=== PATIENT | female | born 1950 | race Caucasian/White ===

== ENCOUNTER → 2018-11-28 | Outpatient (CLI) | payer MEDICARE, OTHER ==
--- NOTE | 2018-11-28 11:47 | XR ---
EXAMINATION TYPE: XR cervical spine comp DATE OF EXAM: 11/28/2018 COMPARISON: NONE HISTORY: Pain TECHNIQUE: Four views are submitted. FINDINGS: The odontoid is intact. There are no compression deformities. The prevertebral soft tissue structur es are within normal limits. There is a slight anterolisthesis of 2 mm of C4 on C5 with facet arthro igor. Multilevel facet arthropathy seen with multilevel mild degenerative disc disease. Calcificatio n the soft tissue the neck may be related to carotid artery calcification. IMPRESSION: 1. Multilevel mild degenerative disc disease with multilevel facet arthropathy and grade 1 anterolist hesis C4 on C5. MRI recommended.
== END | disposition home or self-care (01) ==
LOC: RADXRYALE 11:06
PROVIDERS: ATTEND Family Medicine
DX: M43.12 Spondylolisthesis, cervical region (principal); M50.321 Other cervical disc degeneration at C4-C5 level; M46.92 Unspecified inflammatory spondylopathy, cervical region
CPT/HCPCS: 72050